=== PATIENT | male | born 1995 | race Caucasian/White ===

== ENCOUNTER 2017-06-18 15:26 | Emergency (ER) | payer MEDICAID, MEDICARE, OTHER ==
[~2017-06-18] VITALS: Ht 165.1 cm; Wt 104.5 kg
[2017-06-18] MEDS ORDERED: LORazepam 2 mg/ml vial IV ONE (15:35)
[2017-06-18 15:50] LABS: BASOPHILS # (AUTO) 0.1 X10'3 (0-0.2); BASOPHILS % (AUTO) 0.6 % (0-1); EOSINOPHILS # (AUTO) 0.1 X10'3 (0-0.9); EOSINOPHILS % (AUTO) 1.2 % (0-6); HEMATOCRIT 45.5 % (42.0-52.0); HEMOGLOBIN 15.6 g/dl (14.0-17.9); LYMPHOCYTES # (AUTO) 2.5 X10'3 (1.1-4.8); LYMPHOCYTES % (AUTO) 24.4 % (21-51); MEAN CORPUSCULAR HEMOGLOBIN 28.6 PG (27.0-31.0); MEAN CORPUSCULAR HGB CONC 34.3 % (33.0-36.5); MEAN CORPUSCULAR VOLUME 83.6 FL (78-98); MEAN PLATELET VOLUME 7.7 FL (7.4-10.4); MONOCYTES # (AUTO) 0.8 X10'3 (0-0.9); MONOCYTES % (AUTO) 7.6 % (2-12); NEUTROPHILS # (AUTO) 6.9 X10'3 (1.8-7.7); NEUTROPHILS % (AUTO) 66.2 % (42-75); PLATELET COUNT 301 X10'3 (140-440); RED BLOOD COUNT 5.45 X10'6 (4.70-6.10); RED CELL DISTRIBUTION WIDTH 13.9 % (11.5-14.5); WHITE BLOOD COUNT 10.4 X10'3 (4.5-11.0)
[2017-06-18 16:05] LABS: ALANINE AMINOTRANSFERASE 48 U/L (12-78); ALBUMIN 4.2 G/DL (3.4-5.0); ALKALINE PHOSPHATASE 78 IU/L (46-116); ANION GAP 17 (8-16); ASPARTATE AMINO TRANSFERASE 15 U/L (10-37); BILIRUBIN,TOTAL 0.5 MG/DL (0.1-1.0); BLOOD UREA NITROGEN 18 MG/DL (7-18); BUN/CREATININE RATIO 15.5 (5.4-32.0); CALCIUM 9.8 MG/DL (8.5-10.1); CHLORIDE 101 MMOL/L (99-107); CREATININE 1.16 MG/DL (0.60-1.10); GLUCOSE 83 MG/DL (70-104); POTASSIUM 3.4 MMOL/L (3.5-5.1); SODIUM 140 MMOL/L (135-145); TOTAL CARBON DIOXIDE 22.2 MMOL/L (24-32); TOTAL PROTEIN 8.4 G/DL (6.4-8.2); eGFR 79 ML/MIN
[2017-06-18] MEDS ORDERED: normal saline 1000ml 1,000 ML IV ONE ×3 (16:05→16:45)
[2017-06-18 16:18] LABS: CLARITY,URINE CLEAR (Clear); COLOR,URINE YELLOW (Yellow); GLUCOSE, URINE NEGATIVE (Neg); KETONES,URINE NEGATIVE (Neg); LEUKOCYTE ESTERASE ,URINE NEGATIVE (Neg); NITRITES, URINE NEGATIVE (Neg); OCCULT BLOOD,URINE NEGATIVE (Neg); PROTEIN,URINE NEGATIVE (Neg); UROBILINOGEN,URINE 0.2 E.U/dL (0.2-1.0)
[2017-06-18 16:20] LABS: UA COLLECTION TYPE CLN CATCH MIDSTREAM
[2017-06-18 16:24] LABS: LACTIC SEPSIS 4.5 MMOL/L (0.4-2.0)
[2017-06-18 16:27] LABS: URINE AMPHETAMINE SCREEN NEGATIVE (Neg); URINE BARBITUATE SCREEN NEGATIVE (Neg); URINE BENZODIAZEPINES SCREEN NEGATIVE (Neg); URINE CANNABINOID SCREEN NEGATIVE (Neg); URINE COCAINE SCREEN NEGATIVE (Neg); URINE METHADONE SCREEN NEGATIVE (Neg); URINE OPIATE SCREEN NEGATIVE (Neg); URINE PHENCYCLIDINE SCREEN NEGATIVE (Neg)
[2017-06-18] MEDS ORDERED: PRED20TA PO (17:20)
[2017-06-18 18:12] VITALS: BP 130/55
== END 2017-06-18 18:15 | disposition home or self-care (01) ==
LOC: ER 15:26
DX: E86.0 Dehydration (principal); R06.4 Hyperventilation; Z79.899 Other long term (current) drug therapy
CPT/HCPCS: 36415; 80053; 80305; 81003; 82140; 83605; 85025; 93005; 96360; 99285; J7030

== ENCOUNTER 2024-06-06 18:38 | Emergency (ER) | payer SELFPAY ==
[~2024-06-06] VITALS: Ht 170.2 cm; Wt 114.8 kg
[2024-06-06] MEDS ORDERED: ketorolac trometh 15mg/ml vial 15 MG/ML ML IM ONE (20:00)
[2024-06-06] MEDS: ketorolac trometh 30MG/ML vial 30 MG/ML VIAL IM ONE (20:16)
[2024-06-06] MEDS ORDERED: METH-798 PO (20:21)
[2024-06-06] MEDS ORDERED: HYDR-3965 PO (20:21)
[2024-06-06] MEDS ORDERED: IBUP-862 PO (20:21)
[2024-06-06 20:44] VITALS: BP 130/82; PULSE 80; RESP 17; TEMP 98.2; O2SAT 98
== END 2024-06-06 20:40 | disposition home or self-care (01) ==
LOC: ER 18:39
DX: S13.4XXA Sprain of ligaments of cervical spine, initial encounter (principal); S23.3XXA Sprain of ligaments of thoracic spine, initial encounter; S33.5XXA Sprain of ligaments of lumbar spine, initial encounter; V43.52XA Car driver injured in collision with other type car in traffic accident, initial encounter; Y93.89 Activity, other specified; Y92.410 Unspecified street and highway as the place of occurrence of the external cause; Y99.8 Other external cause status
CPT/HCPCS: 72125; 72128; 72131; 96372; 99285; J1885